=== PATIENT | female | born 1950 | race Caucasian/White ===

== ENCOUNTER → 2016-12-06 | Day surgery (SDC) | payer MEDICARE ==
[~2016-12-06] MED LIST: ACETAMINOPHEN/HYDROcodone 325 MG/5 MG TAB ONE; BUPIVACAINE HCL PF 0.25% 30 ML VIAL ONE; CLINDAMYCIN PHOS 600 MG/4 ML VIAL ONE; KETOROLAC TROMETHAMINE 30 MG/ML (IVP) VIAL IV PUSH ONE; MIDAZOLAM HCL 2 MG/2 ML VIAL ONE; ONDANSETRON HCL 4 MG/2 ML VIAL IV PUSH ONE; PROPOFOL 200 MG/20 ML AMP IV ONE; SODIUM CHLORIDE 0.9% INJ 100 ML IV ONE
--- NOTE | 2016-12-09 07:57 | MP ---
cc: MAYA ALFRED DPM DATE OF SURGERY: 12/06/2016 PREOPERATIVE DIAGNOSIS Right foot hallux rigidus with hallux abductovalgus and joint pain. POSTOPERATIVE DIAGNOSIS Right foot hallux rigidus with hallux abductovalgus and joint pain. PROCEDURE PERFORMED Right first metatarsophalangeal joint fusion. MATERIALS USED [employer] Ortholoc system, small first ray plate, 2.7 locking and nonlocking screws as well as 3.0 Dart-Fire headless cannulated screw system. SPECIMEN None. ESTIMATED BLOOD LOSS Less than 30 mL. COMPLICATIONS None. ANESTHESIA General; 20 cc of 0.25% Marcaine plain injectable. TOURNIQUET TIME 54 minutes at a setting of 215 mmHg about the patient's right mid calf. DISPOSITION To PACU with discharge home when stable per same-day surgery criteria. PROCEDURE IN DETAIL Under mild sedation the patient was brought into the operating room, placed on the operating table in the supine position. Following the induction of general anesthesia, local anesthesia was obtained about the patient's right forefoot utilizing standard block fashion. The right lower extremity was then scrubbed, prepped and draped in the usual aseptic fashion. The foot was elevated and exsanguinated and the previously placed mid ankle tourniquet was inflated to 215 mmHg. An incision was made over the dorsal aspect of the first MPJ just medial to the extensor hallucis longus tendon. Sharp and blunt dissection was carried down to the joint capsule and a linear an L-shaped capsular incision was made being careful not to violate the tendinous or neurovascular structures. Arthritic changes were seen. There was near complete loss of all articular surface of the base of the proximal phalanx and the head of the first metatarsal. Utilizing power instrumentation the dorsal osteophytic lipping and medial dorsal eminence of the base of the proximal phalanx and the head of the first metatarsal was transected. A McGlamry elevator was used to free up any plantar contractures to allow ease of positioning of the first metatarsophalangeal joint. Next utilizing a combination of curet and rongeur all articular surface was removed. Next, utilizing a solid 1.8 drill bit and osteotome and mallet the arthrodesis site was prepared. The foot was then held in a rectus position straight without any hallux abductovalgus with slight dorsiflexion. A weightbearing surface was simulated and the pulp of the toe of the distal hallux was slightly elevated from the simulated weightbearing surface. A wire was then placed from the base of the proximal phalanx medially anchoring proximally at the lateral aspect of the first metatarsal head. This was then fixated utilizing proper AO technique with a headless screw. This was then redirected to the dorsal aspect of the patient's first metatarsal phalangeal joint in which a locking plate was then placed. The most distal two holes in the locking plate were fixated into the base of the proximal phalanx and then utilizing the offset compression ramp a screw was then placed further compressing the arthrodesis site and then two screws were placed in the most proximal aspect of the plate. There was noted to be no motion of the arthrodesis site. The wound was flushed with copious amounts of normal saline. The capsular layer and deep dermis was closed utilizing Monocryl. Skin was closed utilizing nylon. Upon relieving the tourniquet there was a prompt hyperemic response to all digits without any delayed capillary fill time. A bulky bandage was placed. The patient was transferred from OR to PACU with all vital signs stable. The patient is heel transfer weight bear only, minimal weight bear. She will follow up within 3-5 days. CARMEL Velasco /2:21 PM /7:40 AM
== END | disposition home or self-care (01) ==
LOC: ESDC 11:22
PROVIDERS: ATTEND Podiatrist Foot & Ankle Surgery
DX: M20.21 Hallux rigidus, right foot (principal); M20.11 Hallux valgus (acquired), right foot
CPT/HCPCS: 01480; 28750; 73620; 76000; C1713; J1885; J2250; J2405; J3010